=== PATIENT | male | born 1990 | race Caucasian/White ===

== ENCOUNTER 2020-11-05 13:40 | Emergency (ER) | payer BC ==
--- NOTE | 2020-11-05 14:29 | EDM.PDOC ---
ED HPI GENERAL MEDICAL PROBLEM - General Chief Complaint: Back Pain or Injury Stated Complaint: BACK PAIN Time Seen by Provider: 11/05/20 13:49 Source of Information: Reports: Patient History Limitations: Reports: No Limitations - History of Present Illness INITIAL COMMENTS - FREE TEXT/NARRATIVE: The patient presents with low back pain. He was at the gym lifting weights and he heard a pop and had severe pain to the low back at the midline. The pain does not go down one leg or the other. He has no numbness or weakness. He has no bowel or bladder problems. He has never had trouble with his back before. He was doing hip sled when this happened. Onset: Sudden Duration: Minutes: Location: Reports: Back Quality: Reports: Sharp Severity: Severe Improves with: Reports: Immobilization Worsens with: Reports: Heat Therapy Context: Reports: Trauma (lifting weights) Associated Symptoms: Reports: No Other Symptoms Lower Back Pain Score (Numeric/FACES): 6 - Related Data Allergies Allergy/AdvReac Type Severity Reaction Status Date / Time No Known Allergies Allergy Verified 11/05/20 13:52 Home Meds: Home Meds Cyclobenzaprine [Flexeril] 10 mg PO TID PRN #20 tab 11/05/20 [Rx] Past Medical History - Past Health History Medical/Surgical History: Denies Medical/Surgical History Social & Family History - Tobacco Use Tobacco Use Status *Q: Never Tobacco User - Recreational Drug Use Recreational Drug Use: No ED ROS GENERAL - Review of Systems Review Of Systems: See Below Constitutional: Reports: No Symptoms HEENT: Reports: No Symptoms Respiratory: Reports: No Symptoms Cardiovascular: Reports: No Symptoms Endocrine: Reports: No Symptoms GI/Abdominal: Reports: No Symptoms : Reports: No Symptoms Musculoskeletal: Reports: Back Pain ED EXAM,LOWER BACK PAIN/INJURY - Physical Exam Exam: See Below Exam Limited By: No Limitations General Appearance: Alert, No Apparent Distress Ears: Normal External Exam Nose: Normal Inspection Head: Atraumatic, Normocephalic Neck: Normal Inspection Respiratory/Chest: No Respiratory Distress, Lungs Clear, Normal Breath Sounds Cardiovascular: Regular Rate, Rhythm, No Edema, No Murmur GI/Abdominal: Soft, Non-Tender, No Organomegaly, No Mass Back Exam: Other (Mild pain upon paltion to the low back in the mid line) Extremities: Normal Inspection Neurological: Alert, No Motor/Sensory Deficits, Oriented x 3 Course - Vital Signs Last Recorded V/S: Last Vital Signs Temp 98.2 F 11/05/20 13:50 Pulse 87 11/05/20 13:50 Resp 16 11/05/20 13:50 BP 130/79 11/05/20 13:50 Pulse Ox 99 11/05/20 13:50 - Orders/Labs/Meds Orders: Active Orders 24 hr Category Date Time Status Lumbar Spine 2 or 3V [CR] Stat Exams 11/05/20 14:00 Taken - Re-Assessments/Exams Free Text/Narrative Re-Assessment/Exam: 11/05/20 14:32 I ordered an x-ray of his back. The x-ray looks good. I will get him on some flexeril as needed. Departure - Departure Time of Disposition: 14:35 Disposition: Home, Self-Care 01 Condition: Good Clinical Impression: Low back pain Qualifiers: Chronicity: acute Back pain laterality: bilateral Sciatica presence: without sciatica Qualified Code(s): M54.5 - Low back pain - Discharge Information *PRESCRIPTION DRUG MONITORING PROGRAM REVIEWED*: Not Applicable *COPY OF PRESCRIPTION DRUG MONITORING REPORT IN PATIENT ANDERSON: Not Applicable Prescriptions: Cyclobenzaprine [Flexeril] 10 mg PO TID PRN #20 tab PRN Reason: Pain Referrals: PCP,None [Primary Care Provider] - Kian Kasper PA-C [Physician Order Checker] - 1 Week Forms: ED Department Discharge Additional Instructions: Ice your back for 15 minutes 3 times per day for 2 days. Take tylenol or motrin for pain. If that does not help, try the hydrocodone. Follow up with Kian Kasper in our clinic if you are not better in a week. Please return if you are worse. Sepsis Event Note (ED) - Evaluation Sepsis Screening Result: No Definite Risk - Focused Exam Vital Signs: Vital Signs Temp Pulse Resp BP Pulse Ox 11/05/20 13:50 98.2 F 87 16 130/79 99 - My Orders Last 24 Hours: My Active Orders 11/05/20 14:00 Lumbar Spine 2 or 3V [CR] Stat - Assessment/Plan Last 24 Hours: My Active Orders 11/05/20 14:00 Lumbar Spine 2 or 3V [CR] Stat
--- NOTE | 2020-11-05 15:08 | CR ---
Lumbar spine: AP, lateral and coned-down lateral views centered to the lumbosacral junction were obtained. Comparison: No prior study is available. Mild posterior disc space narrowing is seen throughout the lumbar spine and lower thoracic spine. Vertebral body heights are maintained. Small bony density compatible with minimal limbus vertebra is noted off the anterior and superior endplate of L2. Pedicles are intact. Transverse and spinous processes are felt to be intact. Very slight degenerative change is seen within the sacroiliac joints. Impression: 1. Mild degenerative change within the sacroiliac joints. 2. Minimal limbus vertebra as noted above. 3. Slight scattered posterior disc space narrowing. Diagnostic code #2
== END 2020-11-05 14:50 | disposition home or self-care (01) ==
LOC: JD.ED 13:40
DX: M54.5 Low back pain (principal)
CPT/HCPCS: 72100; 72100-26; 99283; 99283-25